=== PATIENT | male | born 1965 | race Caucasian/White ===

== ENCOUNTER 2021-04-09 07:31 | Emergency (ER) | payer BC, OTHER ==
[~2021-04-09] VITALS: Ht 170.2 cm; Wt 70.3 kg
[2021-04-09 09:04] VITALS: BP 158/66
[2021-04-09] MEDS ORDERED: KETOROLAC TROMETH 60MG/2ML VIAL IM ONE (09:30)
== END 2021-04-09 10:10 | disposition home or self-care (01) ==
LOC: ER 07:31
DX: S39.012A Strain of muscle, fascia and tendon of lower back, initial encounter (principal); M62.830 Muscle spasm of back; E78.5 Hyperlipidemia, unspecified; X50.1XXA Overexertion from prolonged static or awkward postures, initial encounter; Y93.89 Activity, other specified; Y92.89 Other specified places as the place of occurrence of the external cause; Y99.0 Civilian activity done for income or pay
CPT/HCPCS: 72100; 96372; 99283; J1885